=== PATIENT | male | born 1960 | race Caucasian/White ===

== ENCOUNTER → 2016-10-28 | Outpatient (CLI) | payer BC, OTHER ==
--- NOTE | 2016-10-29 10:04 | SLEEPHOME ---
DATE OF PROCEDURE: 10/28/2016 ORDERED BY: Jenae Singh NP Diagnostic home sleep testing was performed due to concern for the obstructive sleep apnea syndrome in this patient with a history of excessive somnolence and nonrestorative sleep. For testing, a NOX-T3 respiratory monitoring device was utilized. Continuous record was made of pulse, oxygen saturation, chest and abdominal strain, airflow, and body position. 9 hours and 15 minutes of data were reviewed. 7 hours and 24 minutes were marked as time in bed. During the interval marked time in bed, 63 respiratory events were identified of 10 seconds in duration or greater for a respiratory event index of 8.5. The events were primarily obstructive. Mixed apneas were also scored. The patient's baseline heart rate was 84 beats per minute. Heart rate ranged 71 to 103. Baseline oxygen saturation 89%. Lowest saturation 85%. Testing was performed in both the supine and nonsupine positions. IMPRESSION: Abnormal home sleep testing with repetitive respiratory events and oxygen desaturation to 85% with a respiratory event index of 8.5 is consistent with the obstructive sleep apnea syndrome. RECOMMENDATION: The patient should be referred for formal sleep evaluation and in-laboratory pressure titration.
== END ==
LOC: M SLEEP HO 08:48
PROVIDERS: ATTEND Nurse Practitioner Adult Health
DX: G47.33 Obstructive sleep apnea (adult) (pediatric) (principal)

== ENCOUNTER → 2017-05-01 | Outpatient (CLI) | payer BC ==
--- NOTE | 2017-05-02 02:11 | REP ---
Clinical: Lateral foot pain. Technique: AP, lateral, bilateral oblique views of the left foot. Findings: Hallux valgus deformity and degenerative changes at the first metatarsophalangeal joint includes subchondral heterogeneity and cystic changes to the head of the metatarsal bone with adjacent small bony/calcific densities along the medial margin of the MTP joint and joint space narrowing. No acute fracture dislocation. Remainder examination appears relatively normal for age. Impression: Hallux valgus deformity and moderate arthritic degenerative changes at the first MTP joint. Signed by Riky Marin MD 05/02/2017 02:03 A
== END ==
LOC: M WUC 08:30
PROVIDERS: ATTEND Physician Assistant
DX: M19.072 Primary osteoarthritis, left ankle and foot (principal); M20.12 Hallux valgus (acquired), left foot

== ENCOUNTER → 2017-11-15 | Outpatient (CLI) | payer BC ==
[2017-11-15 11:38] LABS: ALBUMIN/GLOBULIN RATIO 1.18 (1.00-1.93); ALKALINE PHOSPHATASE 129 U/L (45-117); ALT/SGPT 57 U/L (12-78); ANION GAP 5 MEQ/L (8-16); AST/SGOT 25 U/L (7-37); BILIRUBIN,TOTAL 0.9 MG/DL (0.2-1.0); BLOOD UREA NITROGEN 15 MG/DL (7-18); CALCIUM LEVEL 8.5 MG/DL (8.5-10.1); CARBON DIOXIDE LEVEL 28 MEQ/L (21-32); CHLORIDE LEVEL 108 MEQ/L (98-107); CREATININE FOR GFR 0.94 MG/DL (0.70-1.30); GLOMERULAR FILTRATION RATE > 60.0 (>56); GLUCOSE, FASTING 105 MG/DL (70-100); MAGNESIUM LEVEL 2.1 MG/DL (1.8-2.4); PHOSPHORUS LEVEL 2.3 MG/DL (2.5-4.9); POTASSIUM SERUM 4.4 MEQ/L (3.5-5.1); SODIUM LEVEL 141 MEQ/L (136-145); TOTAL PROTEIN 7.4 GM/DL (6.4-8.2); URIC ACID 6.5 MG/DL (3.5-7.2)
[2017-11-17 10:33] LABS: PTH INTACT 38.8 PG/ML (18.5-88.0)
== END ==
LOC: M WUC 08:13
DX: N13.2 Hydronephrosis with renal and ureteral calculous obstruction (principal); N23 Unspecified renal colic
CPT/HCPCS: 83735

== ENCOUNTER → 2017-12-14 | Outpatient (CLI) | payer BC ==
[2017-12-14 17:19] LABS: HEMATOCRIT 52.3 % (42.0-52.0); HEMOGLOBIN 17.6 g/dl (14.0-18.0); MEAN CORPUSCULAR HEMOGLOBIN 30.1 pg (27.0-33.0); MEAN CORPUSCULAR HGB CONC 33.7 g/dl (32.0-36.5); MEAN CORPUSCULAR VOLUME 89.6 fl (80.0-96.0); PLATELET COUNT, AUTOMATED 235 10^3/uL (150-450); RED BLOOD COUNT 5.84 10^6/uL (4.30-6.10); RED CELL DISTRIBUTION WIDTH 13.2 % (11.5-14.5); WHITE BLOOD COUNT 7.7 10^3/uL (4.0-10.0)
[2017-12-14 17:27] LABS: APPEARANCE, URINE CLEAR (CLEAR); BACTERIA, URINE AUTO NEGATIVE (NEGATIVE); BILIRUBIN, URINE AUTO NEGATIVE (NEGATIVE); BLOOD, URINE BLOOD 2+ (NEGATIVE); COLOR, URINE YELLOW (YELLOW); GLUCOSE, URINE (UA) AUTO NEGATIVE (NEGATIVE); KETONE, URINE AUTO NEGATIVE (NEGATIVE); LEUKOCYTE ESTERASE, URINE AUTO NEGATIVE (NEGATIVE); NITRITE, URINE AUTO NEGATIVE (NEGATIVE); PROTEIN, URINE AUTO NEGATIVE (NEGATIVE); RBC, URINE AUTO 9 /HPF (0-3); SPECIFIC GRAVITY URINE AUTO 1.017 (1.002-1.035); SQUAMOUS EPITHELIAL CELL UR AU 0 /HPF (0-6); UROBILINOGEN, URINE AUTO 0.2 mg/dL (0.0-2.0); WBC, URINE AUTO 1 /HPF (0-3)
[2017-12-14 17:44] LABS: ALBUMIN 3.8 GM/DL (3.2-5.2); ALBUMIN/GLOBULIN RATIO 1.19 (1.00-1.93); ALKALINE PHOSPHATASE 143 U/L (45-117); ALT/SGPT 53 U/L (12-78); ANION GAP 9 MEQ/L (8-16); AST/SGOT 25 U/L (7-37); BILIRUBIN,TOTAL 0.5 MG/DL (0.2-1.0); BLOOD UREA NITROGEN 13 MG/DL (7-18); CALCIUM LEVEL 8.7 MG/DL (8.5-10.1); CARBON DIOXIDE LEVEL 25 MEQ/L (21-32); CHLORIDE LEVEL 107 MEQ/L (98-107); CHOLESTEROL LEVEL 112 MG/DL (<200); CHOLESTEROL RISK RATIO 5.333 (<5); CREATININE FOR GFR 0.88 MG/DL (0.70-1.30); GLOMERULAR FILTRATION RATE > 60.0 (>56); GLUCOSE, FASTING 90 MG/DL (70-100); HDL CHOLESTEROL 21 MG/DL (>40); LDH LACTATE DEHYDROGENASE 145 U/L (87-241); LDL CHOLESTEROL 59.4 MG/DL (<100); NON-HDL-C 91 MG/DL; PHOSPHORUS LEVEL 2.3 MG/DL (2.5-4.9); POTASSIUM SERUM 4.2 MEQ/L (3.5-5.1); PROSTATIC SPECIFIC AG MONITOR 0.83 NG/ML (< 4.0); SODIUM LEVEL 141 MEQ/L (136-145); TRIGLYCERIDES LEVEL 158 MG/DL (<150); URIC ACID 6.3 MG/DL (3.5-7.2)
[2017-12-14 18:24] LABS: ESTIMATED AVERAGE GLUCOSE 105 MG/DL (60-110); HEMOGLOBIN A1c 5.3 %
[2017-12-15 10:42] LABS: TOTAL 25(OH) VITAMIN D 25.4 NG/ML (30.0-100.0)
== END ==
LOC: M WUC 08:22
DX: I25.10 Atherosclerotic heart disease of native coronary artery without angina pectoris (principal); I10 Essential (primary) hypertension; E55.9 Vitamin D deficiency, unspecified; E66.9 Obesity, unspecified; Z13.6 Encounter for screening for cardiovascular disorders; G47.33 Obstructive sleep apnea (adult) (pediatric); R73.01 Impaired fasting glucose; Z12.5 Encounter for screening for malignant neoplasm of prostate
CPT/HCPCS: 83615

== ENCOUNTER 2020-12-02 17:59 | Emergency (ER) | payer BC ==
[~2020-12-02] VITALS: Ht 177.8 cm; Wt 111.2 kg
[2020-12-02] MEDS ORDERED: NIAC500T64 (18:06)
[2020-12-02] MEDS ORDERED: LOSA100T50 (18:06)
[2020-12-02] MEDS ORDERED: ACETAMINOPHEN 500 MG TAB PO ONE (18:20)
[2020-12-02 20:45] VITALS: BP 145/83
== END 2020-12-02 20:48 | disposition home or self-care (01) ==
LOC: M ED 17:59
DX: U07.1 COVID-19 (principal); I10 Essential (primary) hypertension; Z79.899 Other long term (current) drug therapy

== ENCOUNTER 2020-12-02 20:56 | Outpatient (CLI) | payer BC ==
[2020-12-02] VITALS (8 sets, daily range): BP systolic 102–118; BP diastolic 60–67
--- NOTE | 2020-12-02 19:54 | HPEPDOC ---
[facility] [place] Medical History & Physical Date of Admission Dec 02, 2020 Date of Service: Dec 02, 2020 Attending Physician: KERI VELAZQUEZ MD History and Physical TIME OF SERVICE: 820om CHIEF COMPLAINT: dyspnea HISTORY OF PRESENT ILLNESS: This 59 yr old M was diagnosed with COVID on FridayNov 27 which he thinks he likely got while working. Today he presented w c/o dyspnea associated with runny nose, fever chills, muscles aches and poor appetite; he denied having n/v headache or any rashes. REVIEW OF SYSTEMS: negative except as listed in HPI PAST MEDICAL/ SURGICAL HISTORY: Essential HTN Clas 1 obesity Knee surgery SOCIAL HISTORY: He doesnt smoke FAMILY HISTORY: n/a ALLERGIES: Please see below. HOME MEDICATIONS: Please see below. PHYSICAL EXAMINATION: VITAL SIGNS: Please see below. GENERAL APPEARANCE: well nourished and developed HEENT: mask covering lower face CARDIOVASCULAR: RRR/NMRG LUNGS: CTAB on RA ABDOMEN: obese MUSCULOSKELETAL: ROMIx 4 INTEGUMENT: slightly flushed / not diaphretic NEUROLOGICAL: CN 2-12 intact / speech not dysarthric PSYCHIATRIC: A&Ox 3 / able to understand and follow all commands LABORATORY DATA: n/a IMAGING: n/a MICROBIOLOGY: per pt COVID + ASSESSMENT: is a 59 yr old w a hx of HTN and obesity who will receive Bamlanivimab infusion. PLAN: 1.COVID 19 The benefits and risks of antibody infusion were explained to the patient. He signed the consent form and agreed to receive the infusion. Plan: Bamalanivimab order set Dispo: home after infusion Home Medications Miscellaneous Medications Losartan Potassium (Losartan Potassium) 100 Mg Tablet Niacin (Niacin ER) 500 Mg Tab.er.24h Allergies Coded Allergies: No Known Allergies (Unverified , 12/02/20) A-FIB/CHADSVASC A-FIB History Current/History of A-Fib/PAF?: No Current PO Anticoag Therapy: No KERI VELAZQUEZ MD Dec 02, 2020 19:54
[~2020-12-02 20:56] MED LIST: ALBUTEROL 90 MCG/ACT 8GM HFA INHALER INH PRN; ALBUTEROL SULFATE 2.5 MG/0.5 ML INH NEB SOLN INH PRN; EPINEPHrine INJ 1 MG/ML 1ML AMP IM PRN; LOSA100T50; NIAC500T64; NS 1,000 ML IV SCH; diphenhydrAMINE 50MG/ML VIAL (J1200) IV PRN; methylPREDNISolone 125MG 2ML VIAL IV PRN
[2020-12-02] MEDS ORDERED: BAMLANIVIMAB 700 MG in NS 250 ML IV ONE (21:45)
== END 2020-12-02 23:58 | disposition home or self-care (01) ==
LOC: M OPCLI4 20:56
PROVIDERS: ATTEND Internal Medicine
DX: U07.1 COVID-19 (principal)

== ENCOUNTER 2024-02-26 16:04 | Emergency (ER) | payer BC, SELFPAY ==
[~2024-02-26] VITALS: Ht 177.8 cm; Wt 111.8 kg
[~2024-02-26 16:04] MED LIST changes: -ALBUTEROL 90 MCG/ACT 8GM HFA INHALER INH PRN; -ALBUTEROL SULFATE 2.5 MG/0.5 ML INH NEB SOLN INH PRN; -EPINEPHrine INJ 1 MG/ML 1ML AMP IM PRN; +LOSA100T46; -LOSA100T50; -NS 1,000 ML IV SCH; -diphenhydrAMINE 50MG/ML VIAL (J1200) IV PRN; -methylPREDNISolone 125MG 2ML VIAL IV PRN
[2024-02-26] MEDS ORDERED: LOSA100T8 (16:15)
[2024-02-26 20:18] LABS: BASO # 0.1 10^3/uL (0.0-0.2); BASO % 0.3 % (0.0-1.0); EOS # 0.1 10^3/uL (0.0-0.5); EOS % 0.8 % (0.0-3.0); HEMATOCRIT 54.5 % (42.0-52.0); LYMPH # 1.7 10^3/uL (1.5-5.0); LYMPH % 11.7 % (24.0-44.0); MEAN CORPUSCULAR HEMOGLOBIN 31.4 pg (27.0-33.0); MEAN CORPUSCULAR HGB CONC 34.9 g/dl (32.0-36.5); MEAN CORPUSCULAR VOLUME 89.9 fl (80.0-96.0); MONO # 1.4 10^3/uL (0.0-0.8); MONO % 9.4 % (2.0-8.0); NEUTROPHILS # 11.3 10^3/uL (1.5-8.5); NEUTROPHILS % 77.3 % (36.0-66.0); PLATELET COUNT, AUTOMATED 207 10^3/uL (150-450); RED BLOOD COUNT 6.06 10^6/uL (4.30-6.10); WHITE BLOOD COUNT 14.6 10^3/uL (4.0-10.0)
[2024-02-26 20:38] LABS: ALBUMIN 3.7 G/DL (3.2-5.2); ALKALINE PHOSPHATASE 113 U/L (46-116); ALT/SGPT 36 U/L (7.0-40); AST/SGOT 43 U/L (<34); BILIRUBIN,DIRECT 0.4 MG/DL (<0.4); BILIRUBIN,TOTAL 1.3 MG/DL (0.3-1.2); BLOOD UREA NITROGEN 17 MG/DL (9-23); CALCIUM LEVEL 8.4 MG/DL (8.3-10.6); CARBON DIOXIDE LEVEL 20 MMOL/L (20-31); CHLORIDE LEVEL 106 MMOL/L (98-107); CREATININE FOR GFR 1.25 MG/DL (0.70-1.30); GLOMERULAR FILTRATION RATE > 60.0 (>49); GLUCOSE, FASTING 100 MG/DL (74-106); LIPASE 30 U/L (12-53); POTASSIUM SERUM 5.1 MMOL/L (3.5-5.1); SODIUM LEVEL 138 MMOL/L (136-145); TOTAL PROTEIN 6.8 G/DL (5.7-8.2)
[2024-02-26] MEDS: KETOROLAC 30 MG/ML 1ML VIAL IV ONE (23:43)
[2024-02-27 00:49] VITALS: BP 131/87; TEMP 97.8; O2SAT 99
[2024-02-27] MEDS ORDERED: FLOM0.4C39 PO (01:13)
[2024-02-27] MEDS ORDERED: IBUP-1022 PO (01:13)
[2024-02-27] MEDS ORDERED: ONDA4TAB6 PO (01:13)
== END 2024-02-27 01:27 | disposition home or self-care (01) ==
LOC: M ED 16:04
DX: N20.1 Calculus of ureter (principal); K57.30 Diverticulosis of large intestine without perforation or abscess without bleeding; I10 Essential (primary) hypertension; Z87.442 Personal history of urinary calculi
CPT/HCPCS: 74176; 80048; 80076; 81001; 83690; 85025; 96374; 99284; J1885